=== PATIENT | male | born 1970 | race African-American/Black ===

== ENCOUNTER 2017-11-05 13:07 | Emergency (ER) | payer OTHER ==
[~2017-11-05] VITALS: Ht 182.9 cm; Wt 100.0 kg
[2017-11-05] MEDS ORDERED: HYDROCODONE/ACETAMINOPHEN 5/325MG TABLET PO ONE (15:30)
[2017-11-05 15:46] VITALS: BP 165/88
== END 2017-11-05 16:19 | disposition home or self-care (01) ==
LOC: ER 13:20
DX: S50.02XA Contusion of left elbow, initial encounter (principal); W01.0XXA Fall on same level from slipping, tripping and stumbling without subsequent striking against object, initial encounter; Y93.89 Activity, other specified; Y99.8 Other external cause status; Y92.89 Other specified places as the place of occurrence of the external cause
CPT/HCPCS: 29125; 73080; 99284